=== PATIENT | female | born 1945 | race Caucasian/White ===

== ENCOUNTER 2023-09-14 06:55 | Day surgery (SDC) | payer MEDICARE, OTHER ==
[2023-09-14] MEDS ORDERED: Depo-Medrol 40 MG/ML IM ONE (06:56)
[2023-09-14] MEDS ORDERED: Xylocaine-Mpf 2% 5 Ml Vial IJ ONE (06:56)
[2023-09-14] MEDS ORDERED: DIPRIVAN 200 MG/20 ML IV ONE (08:49)
--- NOTE | 2023-09-14 10:17 | XRAY ---
Indication: Bilateral L4-S1 MBB. Intraoperative fluoroscopy provided for 34 seconds. 3 digital spot image submitted for interpretation demonstrates posterior needle tips projecting over the expected left and right L4-S1 nerve roots. Correlate with intraoperative findings/report. Incidental bilateral L4-S1 posterior fusion hardware.
--- NOTE | 2023-09-14 10:28 | XRAY ---
34 seconds of fluoroscopy was used in surgery for a bilateral L4-S1 MBB.
[2023-09-14] MEDS ORDERED: Lactated Ringers 1,000 ML IV ONE (14:58)
== END 2023-09-14 09:26 | disposition home or self-care (01) ==
LOC: SDC-PAIN 06:55
PROVIDERS: ATTEND Psychiatry & Neurology Pain Medicine
DX: M47.816 Spondylosis without myelopathy or radiculopathy, lumbar region (principal); E11.9 Type 2 diabetes mellitus without complications
CPT/HCPCS: 64493; 64494; 72020; 77002; 82947; J2704

== ENCOUNTER 2023-10-05 07:52 | Day surgery (SDC) | payer MEDICARE, OTHER ==
[2023-10-05] MEDS ORDERED: Depo-Medrol 40 MG/ML IM ONE (07:53)
[2023-10-05] MEDS ORDERED: Sensorcaine 0.25% 10 ML IJ ONE (07:53)
[2023-10-05] MEDS ORDERED: Lactated Ringers 1,000 ML IV ONE (09:30)
[2023-10-05] MEDS ORDERED: DIPRIVAN 200 MG/20 ML IV ONE (09:48)
--- NOTE | 2023-10-05 11:48 | XRAY ---
Indication: Bilateral L4-S1 MBB. Intraoperative fluoroscopy provided for 39 seconds. For digital spot images submitted for interpretation demonstrates posterior needle tips projecting over the expected left and right L4-S1 nerve roots. Correlate with intraoperative findings/report. Incidental bilateral L4-S1 posterior fusion hardware
--- NOTE | 2023-10-05 12:04 | XRAY ---
39 seconds of fluoroscopy was used in surgery for a bilateral L4-S1 MBB.
== END 2023-10-05 10:15 ==
LOC: SDC-PAIN 07:52
PROVIDERS: ATTEND Psychiatry & Neurology Pain Medicine
DX: M47.816 Spondylosis without myelopathy or radiculopathy, lumbar region (principal); E11.9 Type 2 diabetes mellitus without complications
CPT/HCPCS: 64493; 64494; 72020; 77002; 82947; J2704

== ENCOUNTER 2023-11-02 08:46 | Day surgery (SDC) | payer MEDICARE, OTHER ==
[2023-11-02] MEDS ORDERED: Depo-Medrol 40 MG/ML IM ONE (08:47)
[2023-11-02] MEDS ORDERED: LIDOCAINE HCL 1% 50 MG/5 ML VL PF IJ ONE (08:47)
[2023-11-02] MEDS ORDERED: BUPIVACAINE 0.5% VIAL IJ ONE (08:47)
[2023-11-02] MEDS ORDERED: DIPRIVAN 200 MG/20 ML IV ONE (10:33)
[2023-11-02] MEDS ORDERED: Lactated Ringers 1,000 ML IV ONE (13:46)
--- NOTE | 2023-11-02 19:58 | XRAY ---
Indication: Right L4-S1 RFA Intraoperative fluoroscopy provided for 54 seconds. 6 digital spot image submitted for interpretation demonstrates posterior needle tips projecting over the expected right L4-S1 nerve roots. Correlate with intraoperative findings/report. Incidental incompletely visualized bilateral L4-S1 posterior fusion hardware.
--- NOTE | 2023-11-02 20:20 | XRAY ---
54 seconds of fluoroscopy was used in surgery for a right L4-S1 RFA.
== END 2023-11-02 11:15 ==
LOC: SDC-PAIN 08:46
PROVIDERS: ATTEND Psychiatry & Neurology Pain Medicine
DX: M47.816 Spondylosis without myelopathy or radiculopathy, lumbar region (principal); E10.9 Type 1 diabetes mellitus without complications
CPT/HCPCS: 64635; 64636; 72100; 77002; 82947; 99100; J2001; J2704

== ENCOUNTER 2023-11-09 08:49 | Day surgery (SDC) | payer MEDICARE, OTHER ==
[2023-11-09] MEDS ORDERED: LIDOCAINE HCL 1% AMPUL 5 ML IJ ONE (08:50)
[2023-11-09] MEDS ORDERED: BUPIVACAINE 0.5% VIAL IJ ONE (08:50)
[2023-11-09] MEDS ORDERED: Depo-Medrol 40 MG/ML IM ONE (08:50)
[2023-11-09] MEDS ORDERED: DIPRIVAN 200 MG/20 ML IV ONE (10:46)
[2023-11-09] MEDS ORDERED: Lactated Ringers 1,000 ML IV ONE (10:53)
--- NOTE | 2023-11-09 12:52 | XRAY ---
Indication: Left L4-S1 RFA. Intraoperative fluoroscopy provided for 55 seconds. 4 digital spot image submitted for interpretation demonstrates posterior needle tips projecting over the expected left L4-S1 nerve roots. Correlate with intraoperative findings/report. Incidental bilateral L4-S1 posterior fusion hardware.
--- NOTE | 2023-11-09 13:08 | XRAY ---
55 seconds of fluoroscopy was used in surgery for a left L4-S1 RFA.
== END 2023-11-09 11:32 | disposition home or self-care (01) ==
LOC: SDC-PAIN 08:49
PROVIDERS: ATTEND Psychiatry & Neurology Pain Medicine
DX: M47.817 Spondylosis without myelopathy or radiculopathy, lumbosacral region (principal); E10.9 Type 1 diabetes mellitus without complications
CPT/HCPCS: 64635; 64636; 72100; 77002; 82947; 99100; J2704